=== PATIENT | male | born 1950 | race Caucasian/White ===

== ENCOUNTER 2016-09-10 00:15 | Emergency (ER) | payer MEDICARE, MEDICAID ==
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
== END 2016-09-10 02:45 ==
LOC: ER 00:15
DX: G89.29 Other chronic pain (principal); M54.9 Dorsalgia, unspecified; F11.20 Opioid dependence, uncomplicated; I10 Essential (primary) hypertension; J45.909 Unspecified asthma, uncomplicated; J44.9 Chronic obstructive pulmonary disease, unspecified; K21.9 Gastro-esophageal reflux disease without esophagitis
CPT/HCPCS: Z7502

== ENCOUNTER 2016-09-17 20:20 | Inpatient (IN) | payer MEDICARE, MEDICAID ==
--- NOTE | 2016-09-17 20:39 | ED Physician Chart ---
Chief Complaint/HPI - Patient Information Date Seen:: 09/17/16 Time Seen:: 20:34 Chief Complaint:: lower leg edema History of Present Illness:: pt of Dr Carreon, sent in from [place] for concern about lower leg edema. has hx of chf. no fever. no cp. no sob. no known hx of injury to leg. pt notes it is hit left leg that is red/swollen and very painfull and hot. Allergies:: Allergies Allergy/AdvReac Type Severity Reaction Status Date / Time No Known Allergies Allergy Verified 09/10/16 01:43 Historian:: Patient, EMS Review:: Transfer documents Reviewed Review of Systems - Review of Systems General/Constitutional: No fever, No chills, No weight loss, No weakness, No diaphoresis, No edema, No loss of appetite Skin: No skin lesions, No rash, No bruising Head: No headache, No light-headedness Eyes: No loss of vision, No pain, No diplopia ENT: No earache, No nasal drainage, No sore throat, No tinnitus Neck: No neck pain, No swelling, No thyromegaly, No stiffness, No mass noted Cardio Vascular: No chest pain, No palpitations, No PND, No orthopnea, No edema Pulmonary: No SOB, No cough, No sputum, No wheezing GI: No nausea, No vomiting, No diarrhea, No pain, No melena, No hematochezia, No constipation, No hematemesis G/U: No dysuria, No frequency, No hematuria Musculoskeletal: No bone or joint pain, No back pain, No muscle pain, Other ( leg pain/edema) Endocrine: No polyuria, No polydipsia Psychiatric: No prior psych history, No depression, No anxiety, No suicidal ideation Hematopoietic: No bruising, No lymphadenopathy Allergic/Immuno: No urticaria, No angioedema Neurological: No syncope, No focal symptoms, No weakness, No paresthesia, No headache, No seizure, No dizziness, No confusion, No vertigo Past Medical History - Past Medical History Past Medical History: HTN, CAD, CHF, PUD/GERD, Other (a fib. pt says he has aborderline DM hx) Social History: Alcohol (past etohic), Care Facility Psychiatricy History: Other (anxiety) Medication: Reviewed Family Medical History - Family Member Mother History Unknown: Yes Physical Exam - Physical Examination General/Constitutional: Awake, Well-developed, well-nourished, Alert, No distress, GCS 15, Non-toxic appearing, Ambulatory Head: Atraumatic Eyes: Lids, conjuctiva normal, PERRL, EOMI Skin: Nl inspection, No rash, No skin lesions, No ecchymosis, Well hydrated, No lymphadenopathy ENMT: External ears, nose nl, Nasal exam nl, Lips, teeth, gums nl Neck: Nontender, Full ROM w/o pain, No JVD, No nuchal rigidity, No bruit, No mass, No stridor Respiratory: Nl effort/Exclusion, Clear to Auscultation, No Wheeze/Rhonchi/Rales Cardio Vascular: RRR, No murmur, gallop, rubs, NL S1 S2 GI: No tenderness/rebounding/guarding, No organomegaly, No hernia, Normal BS's, Nondistended, No mass/bruits, No McBurney tenderness : No CVA tenderness Extremities: No tenderness or effusion, Full ROM, normal strength in all extremities, No edema, Normal digits & nails Other Extremities comments:: Left leg is swollen and red and hot/warm to touch. there are good 2+dp pulses in b feet. rt leg is not hot nor swollen. Neuro/Psych: Alert/oriented, DTR's symmetric, Normal sensory exam, Normal motor strength, Judgement/insight normal, Mood normal, Normal gait, No focal deficits Misc: normal gait, Normal back, No paraspinal tenderness Labs/Radiology/EKG Results - Lab Results Results: Laboratory Tests 09/17/16 09/17/16 09/17/16 21:01 21:01 21:01 WBC 7.1 RBC 3.37 L Hgb 11.6 L Hct 29.7 L MCV 88.2 MCH 34.5 H MCHC Differential 39.1 H RDW 16.8 Plt Count 183 MPV 8.4 Neutrophils % 72.5 Lymphocytes % 16.1 L Monocytes % 9.9 Eosinophils % 1.2 Basophils % 0.3 Sodium 133 L Potassium 4.1 Chloride 102 Carbon Dioxide 27.8 Anion Gap 7.3 BUN 21 Creatinine 0.8 Est GFR ( Amer) > 60.0 Est GFR (Non-Af Amer) > 60.0 BUN/Creatinine Ratio 26.3 Glucose 62 L Whole Bld Lactic Acid 0.85 Calcium 9.5 Total Bilirubin 0.6 AST 30 ALT 17 Alkaline Phosphatase 128 H Total Protein 8.1 Albumin 3.5 L Globulin 4.6 Albumin/Globulin Ratio 0.8 L - Radiology Results Results: us left leg negative for dvt - EKG Interpretations EKG Time:: 20:50 Rhythm: a fib Curtis: 57 Rate: 81 ED Septic Shock - . Is Septic Shock (SBP<90, OR Lactate>4 mmol\L) present?: No Reassessment (Disposition) - Reassessment Reassessment:: case dw Dr Carreon...will admit. pt received levaquin in ed for cellulitis l leg Reassessment Condition:: Unchanged, Improved - Diagnosis Diagnosis:: 1 cellulitis left leg 2 chronic a-fib - Patient Disposition Admitted to:: Telemetry Condition at Disposition:: Unchanged
[2016-09-17] MEDS ORDERED: Levofloxacin 500mg/100mL 500 MG/100 ML BAG IV ONE ×2 (21:00→21:15)
[2016-09-17 21:32] LABS: % BASOPHILS 0.3 % (0.0-2.0); % EOSINOPHILS 1.2 % (0.0-5.0); % LYMPHOCYTES 16.1 % (20.0-50.0); % MONOCYTES 9.9 % (2.0-10.0); % NEUTROPHILS 72.5 % (40.0-80.0); HEMATOCRIT 29.7 % (39.0-49.0); HEMOGLOBIN 11.6 gm/dL (12.6-17.4); MEAN CELL VOLUME 88.2 fl (80-99); MEAN CORPUSCULAR HEMOGLOBIN 34.5 pg (27.0-31.0); MEAN CORPUSCULAR HGB CONC 39.1 pg (28.0-36.0); MEAN PLATELET VOLUME 8.4 fl; NEUTROPHILE ABSOLUTE 5.2 Th/cmm (1.8-8.0); PLATELET COUNT 183 Th/cmm (150-400); RED BLOOD COUNT 3.37 Mil/cmm (3.80-5.80); RED CELL DISTRIBUTION WIDTH 16.8 % (11.5-20.0); WHITE BLOOD COUNT 7.1 Th/cmm (4.8-10.8)
[2016-09-17 21:43] LABS: ALB/GLOB RATIO 0.8 (1.0-1.8); ALKALINE PHOSPHATASE 128 U/L (34-104); ANION GAP 7.3 (7.0-16.0); BILIRUBIN,TOTAL 0.6 mg/dL (0.3-1.0); BUN - UREA NITROGEN 21 mg/dL (7-25); BUN/CREATININE RATIO 26.3; CALCIUM SERUM 9.5 mg/dL (8.6-10.3); CARBON DIOXIDE 27.8 mEq/L (21.0-31.0); CHLORIDE 102 mEq/L (98-107); CREATININE - SERUM 0.8 mg/dL (0.7-1.3); GLUCOSE 62 mg/dL (70-105); POTASSIUM SERUM 4.1 mEq/L (3.5-5.1); SGOT 30 U/L (13-39); SGPT/ALT 17 U/L (7-52); SODIUM SERUM 133 mEq/L (136-145)
[2016-09-18] MEDS ORDERED: Magnesium Hydroxide (MOM) 30 mL UDC PO PRN (00:37)
[2016-09-18] MEDS ORDERED: Fleet Enema 135 mL RC PRN (00:37)
[2016-09-18] MEDS ORDERED: Albuterol Nebulizer 2.5mg/3mL HHN PRN (00:37)
[2016-09-18] MEDS ORDERED: Pneumococcal Vaccine 0.5 mL Vial IM ONE (01:07)
[2016-09-18 07:04] LABS: ANION GAP 8.2 (7.0-16.0); BUN - UREA NITROGEN 20 mg/dL (7-25); BUN/CREATININE RATIO 33.3; CARBON DIOXIDE 27.8 mEq/L (21.0-31.0); CHLORIDE 101 mEq/L (98-107); CREATININE - SERUM 0.6 mg/dL (0.7-1.3); GLUCOSE 90 mg/dL (70-105); SODIUM SERUM 133 mEq/L (136-145)
[2016-09-18 07:06] LABS: % BASOPHILS 0.4 % (0.0-2.0); % EOSINOPHILS 0.8 % (0.0-5.0); % LYMPHOCYTES 19.7 % (20.0-50.0); % MONOCYTES 11.7 % (2.0-10.0); % NEUTROPHILS 67.4 % (40.0-80.0); HEMATOCRIT 28.5 % (39.0-49.0); HEMOGLOBIN 10.6 gm/dL (12.6-17.4); MEAN CELL VOLUME 90.7 fl (80-99); MEAN CORPUSCULAR HEMOGLOBIN 33.7 pg (27.0-31.0); MEAN CORPUSCULAR HGB CONC 37.2 pg (28.0-36.0); MEAN PLATELET VOLUME 8.5 fl; NEUTROPHILE ABSOLUTE 4.5 Th/cmm (1.8-8.0); PLATELET COUNT 166 Th/cmm (150-400); RED BLOOD COUNT 3.15 Mil/cmm (3.80-5.80); RED CELL DISTRIBUTION WIDTH 16.7 % (11.5-20.0); WHITE BLOOD COUNT 6.7 Th/cmm (4.8-10.8)
--- NOTE | 2016-09-18 07:26 | Admit Criteria Form ---
Admit Criteria Forms - Admit Criteria Diagnosis: CELLULITIS Clinical Indications for Admission to Inpatient Care (Place 'X' for any and all applicable criteria): Admission is indicated for ANY ONE of the following(1)(2)(3)(4)(5): [ ]I. Limb-threatening infection [ ]II. High-risk comorbid condition as indicated by ANY ONE of the following: [ ]a) Uncontrolled diabetes (eg, HbA1c greater than 10% (0.1)) [ ]b) Cirrhosis [ ]c) Neutropenia [ ]d) Asplenia [ ]e) Immunosuppression [ ]f) Symptomatic heart failure [ ]III. Failure of outpatient therapy as indicated by ALL of the following: [ ]a) Progression or no improvement after adequate trial (minimum of 48 hours, with longer period for stable lower extremity infection) [ ]b) Adequate antibiotic regimen as indicated by use of ANY ONE of the following: [ ]i) First-generation cephalosporin (e.g., cephalexin) [ ]ii) Antistaphylococcal penicillin (e.g., dicloxacillin) [ ]iii) Penicillin-allergic patient regimen (clindamycin, extended-spectrum fluoroquinolone, or doxycycline) [ ]iv) Resistant organism (eg, methicillin-resistant Staphylococcus aureus) regimen (6) [ ]c) Outpatient intravenous therapy regimen is not appropriate due to ANY ONE of the following. (7)(8)(9)(10): [ ]i) It was tried and was not successful (eg, progression of infection). [ ]ii) It is not available or cannot be arranged in a clinically appropriate time frame (e.g., the next day). [ ]iii) Clinical presentation (eg, acuity of infection, rapidity of progression, confirmed or suspected bacteremia) is judged to require ALL of the following: [ ]1) Immediate initiation of intravenous therapy ( eg, cannot wait for next day) [ ]2) Intensity of patient monitoring and observation (eg, vital sign measurement, checks for infection progression) that cannot be provided at other than inpatient level of care [ ]IV. Mental status changes [ ]V. Bacteremia [ ]. Hemodynamic instability [ ]VII. Suspected necrotizing soft tissue infection (e.g., gas in tissue)(11)( 12) [ ]VIII. Orbital infection (13)(14) [ ]IX. Associated surgical procedure (e.g., abscess drainage, debridement) not amenable to outpatient, emergency department, or observation care [ ]X. Cutaneous gangrene [ ]XI. High fever (temperature greater than 39.5 degrees C (103.1 degrees F) (oral)) not responsive to outpatient, emergency department, or observation care therapy [X ]XIII. Inpatient admission required rather than observation care (Also use Cellulitis: Observation Care as appropriate) because of ANY ONE of the following : [ ]a) Periorbital or perineal infection that is severe or worsening [ ]b) Severe pain requiring acute inpatient management [ ]c) IV fluid to replace significant ongoing (e.g., for over 24 hours) losses (greater than 3L/m2 per day) [ ]d) Compartment syndrome monitoring (17) [ ]e) Strict or protective (eg, laminar flow) isolation [ ]f) Urgent debridement or skin grafting [ ]g) Bone or joint debridement [ ]h) Immediate inpatient surgery [X ]i) Other condition, treatment or monitoring requiring inpatient admission Extended stay beyond goal length of stay may be needed for (1)(18): [ ]a) Necrotizing soft tissue infection or fasciitis [ ]b) Gram-negative infection [ ]c) Methicillin-resistant Staphylococcal aureus (MRSA) infection [ ]d) Peripheral venous insufficiency with cellulitis [ ]e) Extensive edema [ ]f) Sepsis or continued Hemodynamic instability [ ]g) Continued high fever or mental status change [ ]h) Bacteremia [ ]i) Active serious comorbid conditions ( eg, heart failure, renal insufficiency) The original [facility] [employer] content created by [facility] [employer] has been revised. The portions of the content which have been revised are identified through the use of italic text or in bold, and [facility] has neither reviewed nor approved the modified material. All other unmodified content is copyright [facility] Please see references footnoted in the original [facility] edition 2016 Admit Criteria Met?: Yes
[2016-09-18] MEDS: Pantoprazole 40 mg EC Tab PO SCH (08:34)
[2016-09-18] MEDS: Multivitamin Tab PO SCH (08:35)
[2016-09-18] MEDS ORDERED: Non-Formulary Item 1 EA (Non-Formulary Item [Non-Formulary Item] 1 EA) MC SCH (09:00)
[2016-09-18] MEDS ORDERED: Enoxaparin 80 mg/0.8 mL 0.8mL Syr SUBQ SCH (09:15)
--- NOTE | 2016-09-18 14:06 | Diagnostic Imaging Report ---
Portable chest x-ray HISTORY: Shortness of breath The overall heart size is difficult to assess with portable technique in a poor inspiration, but appears enlarged. No acute focal pulmonary processes. No hilar or mediastinal abnormalities. IMPRESSION: 1. No acute pulmonary processes 2. Cardiomegaly
--- NOTE | 2016-09-18 15:29 | Diagnostic Imaging Report ---
Left lower extremity Doppler venous ultrasound exam HISTORY: Pain/swelling Sonographic sector images were obtained through the deep venous systems of the left leg. Associated Doppler data was obtained. The exam demonstrates patency of the common femoral, superficial femoral, popliteal, and posterior tibial veins. Specifically, no thrombus is seen. There are normal compressibility and augmentation responses. IMPRESSION: Negative exam for deep vein thrombophlebitis.
--- NOTE | 2016-09-18 19:40 | Consultation ---
Consult Note - Consult Note Service Date: 09/18/16 Consult Note: PHYSICIAN Consultation Note: Date of Admission: 09/17/16 Purpose of Consultation: Chief Complaint: History of Present Illness: Patient NAZIA GONZÁLES, 66 Y M with multiple comorbidities brought to the ED for Left leg swelling and pain. On initial evaluation, his temperature was 98.3 degree F and WBC count was 7,100. ID consult was called and I had started vancomycin IV. was admitted to location Medical/Surgical Unit I with CELLULITIS. Allergies Allergy/AdvReac Type Severity Reaction Status Date / Time No Known Allergies Allergy Verified 09/10/16 01:43 Vital Signs Temp 98.5 F 09/18/16 16:00 Pulse 67 09/18/16 17:18 Resp 17 09/18/16 16:00 BP 123/55 09/18/16 17:18 Pulse Ox 97 09/18/16 16:00 Intake & Output 09/18/16 09/18/16 09/19/16 06:59 18:59 06:59 Intake Total 690 Output Total 360 Balance 330 Intake: Intake, IV Amount 250 Vancomycin HCl 1,250 mg 250 In Sodium Chloride 0.9% 250 ml @ 250 mls/hr IV Q12H [facility] Rx#:[id number] Oral 440 Output: Urine 360 Laboratory Results - last 24 hr 09/18/16 09/18/16 06:12 06:12 WBC 6.7 RBC 3.15 L Hgb 10.6 L Hct 28.5 L MCV 90.7 MCH 33.7 H MCHC Differential 37.2 H RDW 16.7 Plt Count 166 MPV 8.5 Neutrophils % 67.4 Lymphocytes % 19.7 L Monocytes % 11.7 H Eosinophils % 0.8 Basophils % 0.4 Sodium 133 L Potassium 4.0 Chloride 101 Carbon Dioxide 27.8 Anion Gap 8.2 BUN 20 Creatinine 0.6 L Est GFR ( Amer) > 60.0 Est GFR (Non-Af Amer) > 60.0 BUN/Creatinine Ratio 33.3 Glucose 90 Calcium 9.0 Home Medication Medication Instructions Recorded Type Acetaminophen [Tylenol Extra 1,000 mg PO Q4HR PRN 09/17/16 History Strength] Acetaminophen [Tylenol] 650 mg PO Q4HR PRN 09/17/16 History Acetaminophen [Tylenol] 650 mg PO Q4HR PRN 09/17/16 History Albuterol Sulfate [Proair 2 puff IH BID PRN 09/17/16 History Respiclick] Aspirin 325 mg PO DAILY 09/17/16 History Bisacodyl [Dulcolax 10 Mg Supp] 10 mg RC DAILY PRN 09/17/16 History Digoxin [Lanoxin] 0.25 mg PO DAILY 09/17/16 History Diphenhydramine HCl [Benadryl 25 mg PO HS PRN 09/17/16 History Allergy] Docusate Sodium [Colace] 100 mg PO DAILY 09/17/16 History Fleet Enema [Fleet Enema] 135 ml RC Q48HR PRN 09/17/16 History Furosemide [Lasix] 20 mg PO DAILY 09/17/16 History Lisinopril [Zestril] 20 mg PO DAILY 09/17/16 History Lorazepam [Ativan] 0.5 mg PO Q6HR PRN 09/17/16 History Magnesium Hydroxide [Milk of 30 ml PO HS PRN 09/17/16 History Magnesia] Metoprolol Tartrate [Lopressor] 100 mg PO BID 09/17/16 History Morphine IR [Morphine IR*] 15 mg PO Q12HR PRN 09/17/16 History Multivitamin [Multivitamins] 1 each PO DAILY 09/17/16 History Non-Formulary Item 1 ea MC DAILY 09/17/16 History Ondansetron HCl [Zofran*] 4 mg PO Q8HR PRN 09/17/16 History Pantoprazole [Protonix] 40 mg PO DAILY 09/17/16 History Rivaroxaban [Xarelto] 20 mg PO DAILY 09/17/16 History Spironolactone [Aldactone] 25 mg PO DAILY 09/17/16 History Current Medications Generic Name Dose Route Start Last Admin Trade Name Freq PRN Reason Stop Dose Admin Acetaminophen 1,000 mg 09/18/16 00:46 Tylenol Extra Strength PO 11/17/16 00:45 Q4H PRN Pain (Moderate) Acetaminophen 650 mg 09/18/16 00:37 09/18/16 05:27 Tylenol PO 11/17/16 00:36 650 mg Q4HR PRN Administration Pain (Mild) Albuterol Sulfate 2.5 mg 09/18/16 00:37 Albuterol 2.5mg/3ml Neb Ud HHN BID PRN Shortness of Breath or Wheeze Aspirin 325 mg 09/18/16 09:00 09/18/16 08:30 Aspirin PO 11/17/16 08:59 325 mg DAILY EVELYN Administration Bisacodyl 10 mg 09/18/16 00:37 Dulcolax 10 Mg Supp RC 11/17/16 00:36 DAILY PRN Constipation Digoxin 0.25 mg 09/18/16 09:00 09/18/16 09:02 Lanoxin PO 11/17/16 08:59 Not Given DAILY EVELYN Diphenhydramine HCl 25 mg 09/18/16 00:37 Benadryl PO 11/17/16 00:36 HS PRN Itching Docusate Sodium 100 mg 09/18/16 09:00 09/18/16 08:31 Colace PO 11/17/16 08:59 100 mg DAILY EVELYN Administration Furosemide 20 mg 09/18/16 09:00 09/18/16 08:31 Lasix PO 11/17/16 08:59 20 mg DAILY EVELYN Administration Vancomycin HCl 1,250 mg/ 250 mls @ 250 mls/hr 09/18/16 10:00 09/18/16 11:30 Sodium Chloride IV 11/17/16 09:59 Infused Q12H EVELYN Infusion Lisinopril 20 mg 09/18/16 09:00 09/18/16 08:31 Zestril PO 11/17/16 08:59 20 mg DAILY EVELYN Administration Lorazepam 0.5 mg 09/18/16 00:37 Ativan PO 11/17/16 00:36 Q6HR PRN Anxiety Protocol Magnesium Hydroxide 30 ml 09/18/16 00:37 Milk Of Magnesia PO 11/17/16 00:36 HS PRN Constipation Metoprolol Tartrate 100 mg 09/18/16 09:00 09/18/16 17:18 Lopressor PO 11/17/16 08:59 100 mg BID EVELYN Administration Miscellaneous 1 ea 09/18/16 09:00 Non-Formulary Item [Non-Formulary Item] 11/17/16 08:59 DAILY EVELYN Miscellaneous 1 ea 09/18/16 17:41 Vancomycin Iv Per Pharmacy 11/17/16 17:40 PRN PRN VANCOMYCIN DOSING Morphine Sulfate 15 mg 09/18/16 00:37 09/18/16 14:21 Morphine Ir PO 11/17/16 00:36 15 mg Q12HR PRN Administration Pain (Severe) Multivitamins/Vitamin C 1 tab 09/18/16 09:00 09/18/16 08:35 Theragran PO 11/17/16 08:59 1 tab DAILY EVELYN Administration Ondansetron HCl 4 mg 09/18/16 01:00 Zofran Odt PO 11/17/16 00:59 Q8H PRN Nausea / Vomiting Pantoprazole Sodium 40 mg 09/18/16 09:00 09/18/16 08:34 Protonix PO 11/17/16 08:59 40 mg DAILY EVELYN Administration Rivaroxaban 20 mg 09/18/16 09:00 09/18/16 09:00 Xarelto PO 11/17/16 08:59 20 mg DAILY EVELYN Administration Sodium Phosphate 135 ml 09/18/16 00:37 Fleet Enema RC 11/17/16 00:36 Q48HR PRN Constipation Spironolactone 25 mg 09/18/16 09:00 09/18/16 08:30 Aldactone PO 11/17/16 08:59 25 mg DAILY EVELYN Administration Review of Systems: Constitutional: patient denies any fever, or chills, Has no generalized weakness. HEENT: No earache, or ear discharge, no sore throat. RS: Denies cough of shortness of breath. CVS: There is no CP or palpitations. GI: Denies any N/V/D/C and abd pains. : Denies Dysuria, hematuria. MS: Complains of pain in the legs. 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 Skin: discoloration of legs. associated swelling of left leg. A 12 point ROS was reviewed with the pertinent positive and negatives noted in the HPI. Past Medical History Hx Diabetes No Hx HTN Yes Hx COPD Yes Hx Stroke No Hx Seizure No Hx Renal Disease No Hepatitis No Bleeding Problems No Depression No VRE No MRSA No Hx Dizziness No Anxiety No Hx Arthritis No Hx Asthma Yes Hx Blood Transfusion Reaction No Hx Cardiac Disease No Hx Eating Disorder No Hx Fainting/Syncope No Hx GI Problems/Ulcer Yes TB Diagnosis In Past 2 Years No Social History Smoking Status Former smoker Drug Use No Alcohol Use No Family Medical History Nonsignificant. Physical Exam: General: No Acute Distress HEENT: EOMI Bilaterally, PERRLA Bilaterally, Head is normocephalic, atraumatic on inspection. Cardio: +S1/S2 Auscultated, RRR, no murmurs/rubs/gallops noted Respiratory: Clear to Auscultate Bilaterally. no rhochi. Abdominal: Soft, Nondistended, Nontender to palpation x 4 quadrants Extremities: Swelling of the left leg with discoloration. he has prominent veins of the right leg. NCCE. Stasis changes in both legs Neurological: Alert and Oriented x3, Cranial Nerves II-XII intact bilaterally, Gait Steady, No Focal Deficits noted. Assessment/Plan: 1. Cellulitis of the Left leg. 2. PAD. 3. vericose vein. 4. HTN 5. COPD. Recommendations: Continue vanco IV and order arterial studies. Skin care. Thank you Dr Hoffmann for involving me in taking care of this patient. Bradford Moralez Devesh N., M.D. [id number]
--- NOTE | 2016-09-18 21:49 | History & Physical ---
HISTORY OF PRESENT ILLNESS: The patient came to the Emergency Room ____ bilateral lower leg edema and redness. The patient is known to have history of CHF and the patient was evaluated in the Emergency Room, found to have cellulitis and also DVT. PAST MEDICAL HISTORY: Hypertension, coronary artery disease, CHF, GERD, history of peptic ulcer disease. PHYSICAL EXAMINATION: GENERAL: Awake, alert, well-developed, nourished male, not in acute distress. VITAL SIGNS: As noted. HEAD: Normal. ENT: Normal. NECK: Supple. LUNGS: Bilateral rhonchi. CARDIOVASCULAR SYSTEM: S1, S2 heard. ABDOMEN: Soft. Bowel sounds are heard. CENTRAL NERVOUS SYSTEM: Grossly normal. LABORATORY DATA: White count was 7.1, hemoglobin 11.6 and the patient bilateral leg tenderness was noted. DIAGNOSES: Bilateral leg tenderness, cellulitis, chronic atrial fib, history of congestive heart failure, history of hypertension, history of coronary artery disease and history of chronic obstructive pulmonary disease, history of varicose veins, peripheral vascular disease. PLAN: The patient is being admitted, given IV antibiotics and I will have Dr. Antoine Felder see the patient and I will follow. JOB# [id number]
[2016-09-19] MEDS: Pantoprazole 40 mg EC Tab PO SCH (09:07)
[2016-09-19] MEDS: Multivitamin Tab PO SCH (09:07)
--- NOTE | 2016-09-19 13:00 | General Progress Note ---
Subjective - Review of Systems Service Date: 09/19/16 Subjective: awake , alert, c/o pain Objective - Results Result Diagrams: 09/18/16 06:12 09/18/16 06:12 Recent Labs: Laboratory Last Values WBC 6.7 Th/cmm (4.8-10.8) 09/18/16 06:12 RBC 3.15 Mil/cmm (3.80-5.80) L 09/18/16 06:12 Hgb 10.6 gm/dL (12.6-17.4) L 09/18/16 06:12 Hct 28.5 % (39.0-49.0) L 09/18/16 06:12 MCV 90.7 fl (80-99) 09/18/16 06:12 MCH 33.7 pg (27.0-31.0) H 09/18/16 06:12 MCHC Differential 37.2 pg (28.0-36.0) H 09/18/16 06:12 RDW 16.7 % (11.5-20.0) 09/18/16 06:12 Plt Count 166 Th/cmm (150-400) 09/18/16 06:12 MPV 8.5 fl 09/18/16 06:12 Neutrophils % 67.4 % (40.0-80.0) 09/18/16 06:12 Lymphocytes % 19.7 % (20.0-50.0) L 09/18/16 06:12 Monocytes % 11.7 % (2.0-10.0) H 09/18/16 06:12 Eosinophils % 0.8 % (0.0-5.0) 09/18/16 06:12 Basophils % 0.4 % (0.0-2.0) 09/18/16 06:12 D-Dimer 451 ng/mL (100-400) H 09/17/16 21:01 Sodium 133 mEq/L (136-145) L 09/18/16 06:12 Potassium 4.0 mEq/L (3.5-5.1) 09/18/16 06:12 Chloride 101 mEq/L (98-107) 09/18/16 06:12 Carbon Dioxide 27.8 mEq/L (21.0-31.0) 09/18/16 06:12 Anion Gap 8.2 (7.0-16.0) 09/18/16 06:12 BUN 20 mg/dL (7-25) 09/18/16 06:12 Creatinine 0.6 mg/dL (0.7-1.3) L 09/18/16 06:12 Est GFR ( Amer) > 60.0 ml/min (>90) 09/18/16 06:12 Est GFR (Non-Af Amer) > 60.0 ml/min 09/18/16 06:12 BUN/Creatinine Ratio 33.3 09/18/16 06:12 Glucose 90 mg/dL (70-105) 09/18/16 06:12 POC Glucose 149 MG/DL (70-105) H 09/17/16 22:30 Whole Bld Lactic Acid 0.85 mmol/L (0.60-2.00) 09/17/16 21:01 Calcium 9.0 mg/dL (8.6-10.3) 09/18/16 06:12 Total Bilirubin 0.6 mg/dL (0.3-1.0) 09/17/16 21:01 AST 30 U/L (13-39) 09/17/16 21:01 ALT 17 U/L (7-52) 09/17/16 21:01 Alkaline Phosphatase 128 U/L (34-104) H 09/17/16 21:01 B-Natriuretic Peptide 639.0 pg/mL (5.0-100.0) H 09/17/16 21:01 Total Protein 8.1 gm/dL (6.0-8.3) 09/17/16 21:01 Albumin 3.5 gm/dL (4.2-5.5) L 09/17/16 21:01 Globulin 4.6 gm/dL 09/17/16 21:01 Albumin/Globulin Ratio 0.8 (1.0-1.8) L 09/17/16 21:01 Vancomycin Trough 14.4 ug/mL (10-20) 09/19/16 09:30 - Physical Exam Vitals and I&O: Vital Signs Temp 99.0 F 09/19/16 04:00 Pulse 55 09/19/16 09:10 Resp 18 09/19/16 04:00 BP 114/53 09/19/16 09:10 Pulse Ox 98 09/19/16 04:00 Intake & Output 09/18/16 09/19/16 09/19/16 18:59 06:59 18:59 Intake Total 690 250 Output Total 360 Balance 330 250 Intake: Intake, IV Amount 250 250 Vancomycin HCl 1,250 mg 250 250 In Sodium Chloride 0.9% 250 ml @ 250 mls/hr IV Q12H [facility] Rx#:[id number] Oral 440 Output: Urine 360 Active Medications: Current Medications Acetaminophen (Tylenol Extra Strength) 1,000 mg PO Q4H PRN PRN Reason: Pain (Moderate) Stop: 11/17/16 00:45 Acetaminophen (Tylenol) 650 mg PO Q4HR PRN PRN Reason: Pain (Mild) Stop: 11/17/16 00:36 Last Admin: 09/18/16 20:46 Dose: 650 mg Albuterol Sulfate (Albuterol 2.5mg/3ml Neb Ud) 2.5 mg HHN BID PRN PRN Reason: Shortness of Breath or Wheeze Aspirin (Aspirin) 325 mg PO DAILY [facility] Stop: 11/17/16 08:59 Last Admin: 09/19/16 09:07 Dose: 325 mg Bisacodyl (Dulcolax 10 Mg Supp) 10 mg RC DAILY PRN PRN Reason: Constipation Stop: 11/17/16 00:36 Digoxin (Lanoxin) 0.25 mg PO DAILY [facility] Stop: 11/17/16 08:59 Last Admin: 09/19/16 09:08 Dose: Not Given Diphenhydramine HCl (Benadryl) 25 mg PO HS PRN PRN Reason: Itching Stop: 11/17/16 00:36 Docusate Sodium (Colace) 100 mg PO DAILY [facility] Stop: 11/17/16 08:59 Last Admin: 09/19/16 09:07 Dose: 100 mg Furosemide (Lasix) 20 mg PO DAILY [facility] Stop: 11/17/16 08:59 Last Admin: 09/19/16 09:07 Dose: 20 mg Vancomycin HCl 1,250 mg/ (Sodium Chloride) 250 mls @ 250 mls/hr IV Q12H [facility] Stop: 11/17/16 09:59 Last Admin: 09/19/16 10:06 Dose: 250 mls/hr Lisinopril (Zestril) 20 mg PO DAILY [facility] Stop: 11/17/16 08:59 Last Admin: 09/19/16 09:10 Dose: Not Given Lorazepam (Ativan) 0.5 mg PO Q6HR PRN; Protocol PRN Reason: Anxiety Stop: 11/17/16 00:36 Magnesium Hydroxide (Milk Of Magnesia) 30 ml PO HS PRN PRN Reason: Constipation Stop: 11/17/16 00:36 Metoprolol Tartrate (Lopressor) 100 mg PO BID [facility] Stop: 11/17/16 08:59 Last Admin: 09/19/16 09:10 Dose: Not Given Miscellaneous (Non-Formulary Item [Non-Formulary Item]) 1 ea DAILY [facility] Stop: 11/17/16 08:59 Miscellaneous (Vancomycin Iv Per Pharmacy) 1 [facility] PRN PRN PRN Reason: VANCOMYCIN DOSING Stop: 11/17/16 17:40 Morphine Sulfate (Morphine Ir) 15 mg PO Q12HR PRN PRN Reason: Pain (Severe) Stop: 11/17/16 00:36 Last Admin: 09/19/16 02:25 Dose: 15 mg Multivitamins/Vitamin C (Theragran) 1 tab PO DAILY [facility] Stop: 11/17/16 08:59 Last Admin: 09/19/16 09:07 Dose: 1 tab Ondansetron HCl (Zofran Odt) 4 mg PO Q8H PRN PRN Reason: Nausea / Vomiting Stop: 11/17/16 00:59 Pantoprazole Sodium (Protonix) 40 mg PO DAILY [facility] Stop: 11/17/16 08:59 Last Admin: 09/19/16 09:07 Dose: 40 mg Rivaroxaban (Xarelto) 20 mg PO DAILY [facility] Stop: 11/17/16 08:59 Last Admin: 09/19/16 09:19 Dose: 20 mg Sodium Phosphate (Fleet Enema) 135 ml RC Q48HR PRN PRN Reason: Constipation Stop: 11/17/16 00:36 Spironolactone (Aldactone) 25 mg PO DAILY [facility] Stop: 11/17/16 08:59 Last Admin: 09/19/16 09:06 Dose: 25 mg General: Alert HEENT: Atraumatic Neck: Supple Cardiovascular: Regular rate Lungs: Normal air movement Abdomen: Bowel sounds Neurological: Normal tone Assessment/Plan - Assessment Assessment: 1. cellulitis of left leg. 2. varicose veins. 3. PAD. 4. HTN. 5. COPD. - Plan Plan: ivabx surgical consult wound care cpm
--- NOTE | 2016-09-19 14:14 | Diagnostic Imaging Report ---
Bilateral lower extremity Doppler arterial ultrasound exam HISTORY: Pain, peripheral arterial disease Sonographic sector images were obtained through the arterial systems of both legs. Associated Doppler data was obtained. The exam of the right leg demonstrates biphasic waveforms within the common femoral, proximal midportion of the superficial femoral artery, anterior tibial, posterior tibial, and dorsalis pedis arteries. Triphasic waveforms are seen within the distal portion of the right superficial femoral artery and within the right popliteal artery. Elevated velocities noted within the common femoral and proximal portions of the superficial femoral artery. Increase in velocity also noted within the popliteal artery region with the mild decrease in velocity seen within the right posterior tibial artery. The right ankle-brachial index appears normal (1.2). The left leg demonstrates biphasic waveforms in the common femoral, distal superficial femoral, popliteal, anterior tibial, posterior tibial, and dorsalis pedis arteries. Triphasic waveforms are seen within the proximal midportion of the superficial femoral artery. Elevated velocities noted within the common femoral artery region. Increase in velocity noted within the popliteal artery with a decrease in velocity seen within the left posterior tibial artery. The ankle-brachial index appears normal (1.06). Sonographic sector images demonstrate bilateral mild to moderate diffuse atherosclerotic changes. IMPRESSION: 1. Evidence of diffuse mild to moderate bilateral atherosclerotic changes. If necessary, a CT angiographic study would provide additional detail.
--- NOTE | 2016-09-19 14:17 | Infectious Disease Prog Note ---
Infectious Disease Subjective - Review of Systems Service Date: 09/19/16 Subjective: There is no new change. There is no fever. Infectious Disease Objective - Results Result Diagrams: 09/18/16 06:12 09/18/16 06:12 Recent Labs: Laboratory Last Values WBC 6.7 Th/cmm (4.8-10.8) 09/18/16 06:12 RBC 3.15 Mil/cmm (3.80-5.80) L 09/18/16 06:12 Hgb 10.6 gm/dL (12.6-17.4) L 09/18/16 06:12 Hct 28.5 % (39.0-49.0) L 09/18/16 06:12 MCV 90.7 fl (80-99) 09/18/16 06:12 MCH 33.7 pg (27.0-31.0) H 09/18/16 06:12 MCHC Differential 37.2 pg (28.0-36.0) H 09/18/16 06:12 RDW 16.7 % (11.5-20.0) 09/18/16 06:12 Plt Count 166 Th/cmm (150-400) 09/18/16 06:12 MPV 8.5 fl 09/18/16 06:12 Neutrophils % 67.4 % (40.0-80.0) 09/18/16 06:12 Lymphocytes % 19.7 % (20.0-50.0) L 09/18/16 06:12 Monocytes % 11.7 % (2.0-10.0) H 09/18/16 06:12 Eosinophils % 0.8 % (0.0-5.0) 09/18/16 06:12 Basophils % 0.4 % (0.0-2.0) 09/18/16 06:12 D-Dimer 451 ng/mL (100-400) H 09/17/16 21:01 Sodium 133 mEq/L (136-145) L 09/18/16 06:12 Potassium 4.0 mEq/L (3.5-5.1) 09/18/16 06:12 Chloride 101 mEq/L (98-107) 09/18/16 06:12 Carbon Dioxide 27.8 mEq/L (21.0-31.0) 09/18/16 06:12 Anion Gap 8.2 (7.0-16.0) 09/18/16 06:12 BUN 20 mg/dL (7-25) 09/18/16 06:12 Creatinine 0.6 mg/dL (0.7-1.3) L 09/18/16 06:12 Est GFR ( Amer) > 60.0 ml/min (>90) 09/18/16 06:12 Est GFR (Non-Af Amer) > 60.0 ml/min 09/18/16 06:12 BUN/Creatinine Ratio 33.3 09/18/16 06:12 Glucose 90 mg/dL (70-105) 09/18/16 06:12 POC Glucose 149 MG/DL (70-105) H 09/17/16 22:30 Whole Bld Lactic Acid 0.85 mmol/L (0.60-2.00) 09/17/16 21:01 Calcium 9.0 mg/dL (8.6-10.3) 09/18/16 06:12 Total Bilirubin 0.6 mg/dL (0.3-1.0) 09/17/16 21:01 AST 30 U/L (13-39) 09/17/16 21:01 ALT 17 U/L (7-52) 09/17/16 21:01 Alkaline Phosphatase 128 U/L (34-104) H 09/17/16 21:01 B-Natriuretic Peptide 639.0 pg/mL (5.0-100.0) H 09/17/16 21:01 Total Protein 8.1 gm/dL (6.0-8.3) 09/17/16 21:01 Albumin 3.5 gm/dL (4.2-5.5) L 09/17/16 21:01 Globulin 4.6 gm/dL 09/17/16 21:01 Albumin/Globulin Ratio 0.8 (1.0-1.8) L 09/17/16 21:01 Vancomycin Trough 14.4 ug/mL (10-20) 09/19/16 09:30 - Physical Exam Vitals and I&O: Vital Signs Temp 98.4 F 09/19/16 08:00 Pulse 55 09/19/16 09:10 Resp 18 09/19/16 08:00 BP 114/53 09/19/16 09:10 Pulse Ox 97 09/19/16 08:00 Intake & Output 09/18/16 09/19/16 09/19/16 18:59 06:59 18:59 Intake Total 690 250 240 Output Total 360 250 Balance 330 250 -10 Intake: Intake, IV Amount 250 250 Vancomycin HCl 1,250 mg 250 250 In Sodium Chloride 0.9% 250 ml @ 250 mls/hr IV Q12H [facility] Rx#:[id number] Oral 440 240 Output: Urine 360 250 Active Medications: Current Medications Acetaminophen (Tylenol Extra Strength) 1,000 mg PO Q4H PRN PRN Reason: Pain (Moderate) Stop: 11/17/16 00:45 Acetaminophen (Tylenol) 650 mg PO Q4HR PRN PRN Reason: Pain (Mild) Stop: 11/17/16 00:36 Last Admin: 09/18/16 20:46 Dose: 650 mg Albuterol Sulfate (Albuterol 2.5mg/3ml Neb Ud) 2.5 mg HHN BID PRN PRN Reason: Shortness of Breath or Wheeze Aspirin (Aspirin) 325 mg PO DAILY [facility] Stop: 11/17/16 08:59 Last Admin: 09/19/16 09:07 Dose: 325 mg Bisacodyl (Dulcolax 10 Mg Supp) 10 mg RC DAILY PRN PRN Reason: Constipation Stop: 11/17/16 00:36 Digoxin (Lanoxin) 0.25 mg PO DAILY [facility] Stop: 11/17/16 08:59 Last Admin: 09/19/16 09:08 Dose: Not Given Diphenhydramine HCl (Benadryl) 25 mg PO HS PRN PRN Reason: Itching Stop: 11/17/16 00:36 Docusate Sodium (Colace) 100 mg PO DAILY [facility] Stop: 11/17/16 08:59 Last Admin: 09/19/16 09:07 Dose: 100 mg Furosemide (Lasix) 20 mg PO DAILY [facility] Stop: 11/17/16 08:59 Last Admin: 09/19/16 09:07 Dose: 20 mg Vancomycin HCl 1,250 mg/ (Sodium Chloride) 250 mls @ 250 mls/hr IV Q12H [facility] Stop: 11/17/16 09:59 Last Admin: 09/19/16 10:06 Dose: 250 mls/hr Lisinopril (Zestril) 20 mg PO DAILY [facility] Stop: 11/17/16 08:59 Last Admin: 09/19/16 09:10 Dose: Not Given Lorazepam (Ativan) 0.5 mg PO Q6HR PRN; Protocol PRN Reason: Anxiety Stop: 11/17/16 00:36 Magnesium Hydroxide (Milk Of Magnesia) 30 ml PO HS PRN PRN Reason: Constipation Stop: 11/17/16 00:36 Metoprolol Tartrate (Lopressor) 100 mg PO BID [facility] Stop: 11/17/16 08:59 Last Admin: 09/19/16 09:10 Dose: Not Given Miscellaneous (Non-Formulary Item [Non-Formulary Item]) 1 ea [facility] DAILY [facility] Stop: 11/17/16 08:59 Miscellaneous (Vancomycin Iv Per Pharmacy) 1 [facility] PRN PRN PRN Reason: VANCOMYCIN DOSING Stop: 11/17/16 17:40 Morphine Sulfate (Morphine Ir) 15 mg PO Q12HR PRN PRN Reason: Pain (Severe) Stop: 11/17/16 00:36 Last Admin: 09/19/16 13:49 Dose: 15 mg Multivitamins/Vitamin C (Theragran) 1 tab PO DAILY [facility] Stop: 11/17/16 08:59 Last Admin: 09/19/16 09:07 Dose: 1 tab Ondansetron HCl (Zofran Odt) 4 mg PO Q8H PRN PRN Reason: Nausea / Vomiting Stop: 11/17/16 00:59 Pantoprazole Sodium (Protonix) 40 mg PO DAILY [facility] Stop: 11/17/16 08:59 Last Admin: 09/19/16 09:07 Dose: 40 mg Rivaroxaban (Xarelto) 20 mg PO DAILY [facility] Stop: 11/17/16 08:59 Last Admin: 09/19/16 09:19 Dose: 20 mg Sodium Phosphate (Fleet Enema) 135 ml RC Q48HR PRN PRN Reason: Constipation Stop: 11/17/16 00:36 Spironolactone (Aldactone) 25 mg PO DAILY [facility] Stop: 11/17/16 08:59 Last Admin: 09/19/16 09:06 Dose: 25 mg General: no acute distress, well developed, well nourished HEENT: atraumatic, normocephalic, PERRLA, EOMI Neck: supple, no thyromegaly, no lymphadenopathy Cardiovascular: S1S2, regular Lungs: clear to auscultation bilaterally, clear to percussion Abdomen: soft, no tender, no distended Extremities: other (left leg swelling with discoloration. right leg with discoloration and prominent veints.), no cyanosis, no clubbing, no edema Neurological: awake, alert, oriented Skin: intact Infectious Disease Assmt/Plan - Assessment Assessment: 1. cellulitis of left leg. 2. varicose veins. 3. PAD. 4. HTN. 5. COPD. - Plan Plan: Continue canco IV and consult Dr Keita.
[2016-09-19] MEDS: Acetaminophen 500 MG TAB PO PRN (21:09)
--- NOTE | 2016-09-20 04:51 | Infectious Disease Prog Note ---
Infectious Disease Subjective - Review of Systems Service Date: 09/20/16 Subjective: There is no new change. There is no fever. Infectious Disease Objective - Results Result Diagrams: 09/18/16 06:12 09/18/16 06:12 Recent Labs: Laboratory Last Values WBC 6.7 Th/cmm (4.8-10.8) 09/18/16 06:12 RBC 3.15 Mil/cmm (3.80-5.80) L 09/18/16 06:12 Hgb 10.6 gm/dL (12.6-17.4) L 09/18/16 06:12 Hct 28.5 % (39.0-49.0) L 09/18/16 06:12 MCV 90.7 fl (80-99) 09/18/16 06:12 MCH 33.7 pg (27.0-31.0) H 09/18/16 06:12 MCHC Differential 37.2 pg (28.0-36.0) H 09/18/16 06:12 RDW 16.7 % (11.5-20.0) 09/18/16 06:12 Plt Count 166 Th/cmm (150-400) 09/18/16 06:12 MPV 8.5 fl 09/18/16 06:12 Neutrophils % 67.4 % (40.0-80.0) 09/18/16 06:12 Lymphocytes % 19.7 % (20.0-50.0) L 09/18/16 06:12 Monocytes % 11.7 % (2.0-10.0) H 09/18/16 06:12 Eosinophils % 0.8 % (0.0-5.0) 09/18/16 06:12 Basophils % 0.4 % (0.0-2.0) 09/18/16 06:12 D-Dimer 451 ng/mL (100-400) H 09/17/16 21:01 Sodium 133 mEq/L (136-145) L 09/18/16 06:12 Potassium 4.0 mEq/L (3.5-5.1) 09/18/16 06:12 Chloride 101 mEq/L (98-107) 09/18/16 06:12 Carbon Dioxide 27.8 mEq/L (21.0-31.0) 09/18/16 06:12 Anion Gap 8.2 (7.0-16.0) 09/18/16 06:12 BUN 20 mg/dL (7-25) 09/18/16 06:12 Creatinine 0.6 mg/dL (0.7-1.3) L 09/18/16 06:12 Est GFR ( Amer) > 60.0 ml/min (>90) 09/18/16 06:12 Est GFR (Non-Af Amer) > 60.0 ml/min 09/18/16 06:12 BUN/Creatinine Ratio 33.3 09/18/16 06:12 Glucose 90 mg/dL (70-105) 09/18/16 06:12 POC Glucose 149 MG/DL (70-105) H 09/17/16 22:30 Whole Bld Lactic Acid 0.85 mmol/L (0.60-2.00) 09/17/16 21:01 Calcium 9.0 mg/dL (8.6-10.3) 09/18/16 06:12 Total Bilirubin 0.6 mg/dL (0.3-1.0) 09/17/16 21:01 AST 30 U/L (13-39) 09/17/16 21:01 ALT 17 U/L (7-52) 09/17/16 21:01 Alkaline Phosphatase 128 U/L (34-104) H 09/17/16 21:01 B-Natriuretic Peptide 639.0 pg/mL (5.0-100.0) H 09/17/16 21:01 Total Protein 8.1 gm/dL (6.0-8.3) 09/17/16 21:01 Albumin 3.5 gm/dL (4.2-5.5) L 09/17/16 21:01 Globulin 4.6 gm/dL 09/17/16 21:01 Albumin/Globulin Ratio 0.8 (1.0-1.8) L 09/17/16 21:01 Vancomycin Trough 14.4 ug/mL (10-20) 09/19/16 09:30 - Physical Exam Vitals and I&O: Vital Signs Temp 98.3 F 09/20/16 04:00 Pulse 92 09/20/16 04:00 Resp 19 09/20/16 04:00 BP 124/65 09/20/16 04:00 Pulse Ox 98 09/20/16 04:00 Intake & Output 09/19/16 09/19/16 09/20/16 06:59 18:59 06:59 Intake Total 250 850 Output Total 610 Balance 250 240 Intake: Intake, IV Amount 250 250 Vancomycin HCl 1,250 mg 250 250 In Sodium Chloride 0.9% 250 ml @ 250 mls/hr IV Q12H [facility] Rx#:[id number] Oral 600 Output: Urine 610 Active Medications: Current Medications Acetaminophen (Tylenol Extra Strength) 1,000 mg PO Q4H PRN PRN Reason: Pain (Moderate) Stop: 11/17/16 00:45 Last Admin: 09/19/16 21:09 Dose: 1,000 mg Acetaminophen (Tylenol) 650 mg PO Q4HR PRN PRN Reason: Pain (Mild) Stop: 11/17/16 00:36 Last Admin: 09/18/16 20:46 Dose: 650 mg Albuterol Sulfate (Albuterol 2.5mg/3ml Neb Ud) 2.5 mg HHN BID PRN PRN Reason: Shortness of Breath or Wheeze Aspirin (Aspirin) 325 mg PO DAILY [facility] Stop: 11/17/16 08:59 Last Admin: 09/19/16 09:07 Dose: 325 mg Bisacodyl (Dulcolax 10 Mg Supp) 10 mg RC DAILY PRN PRN Reason: Constipation Stop: 11/17/16 00:36 Digoxin (Lanoxin) 0.25 mg PO DAILY [facility] Stop: 11/17/16 08:59 Last Admin: 09/19/16 09:08 Dose: Not Given Diphenhydramine HCl (Benadryl) 25 mg PO HS PRN PRN Reason: Itching Stop: 11/17/16 00:36 Docusate Sodium (Colace) 100 mg PO DAILY [facility] Stop: 11/17/16 08:59 Last Admin: 09/19/16 09:07 Dose: 100 mg Furosemide (Lasix) 20 mg PO DAILY [facility] Stop: 11/17/16 08:59 Last Admin: 09/19/16 09:07 Dose: 20 mg Vancomycin HCl 1,250 mg/ (Sodium Chloride) 250 mls @ 250 mls/hr IV Q12H [facility] Stop: 11/17/16 09:59 Last Admin: 09/19/16 21:14 Dose: 250 mls/hr Lisinopril (Zestril) 20 mg PO DAILY [facility] Stop: 11/17/16 08:59 Last Admin: 09/19/16 09:10 Dose: Not Given Lorazepam (Ativan) 0.5 mg PO Q6HR PRN; Protocol PRN Reason: Anxiety Stop: 11/17/16 00:36 Last Admin: 09/19/16 21:10 Dose: 0.5 mg Magnesium Hydroxide (Milk Of Magnesia) 30 ml PO HS PRN PRN Reason: Constipation Stop: 11/17/16 00:36 Metoprolol Tartrate (Lopressor) 100 mg PO BID [facility] Stop: 11/17/16 08:59 Last Admin: 09/19/16 17:49 Dose: Not Given Miscellaneous (Non-Formulary Item [Non-Formulary Item]) 1 ea DAILY [facility] Stop: 11/17/16 08:59 Miscellaneous (Vancomycin Iv Per Pharmacy) 1 [facility] PRN PRN PRN Reason: VANCOMYCIN DOSING Stop: 11/17/16 17:40 Morphine Sulfate (Morphine Ir) 15 mg PO Q12HR PRN PRN Reason: Pain (Severe) Stop: 11/17/16 00:36 Last Admin: 09/20/16 01:58 Dose: 15 mg Multivitamins/Vitamin C (Theragran) 1 tab PO DAILY [facility] Stop: 11/17/16 08:59 Last Admin: 09/19/16 09:07 Dose: 1 tab Ondansetron HCl (Zofran Odt) 4 mg PO Q8H PRN PRN Reason: Nausea / Vomiting Stop: 11/17/16 00:59 Pantoprazole Sodium (Protonix) 40 mg PO DAILY [facility] Stop: 11/17/16 08:59 Last Admin: 09/19/16 09:07 Dose: 40 mg Rivaroxaban (Xarelto) 20 mg PO DAILY [facility] Stop: 11/17/16 08:59 Last Admin: 09/19/16 09:19 Dose: 20 mg Sodium Phosphate (Fleet Enema) 135 ml RC Q48HR PRN PRN Reason: Constipation Stop: 11/17/16 00:36 Spironolactone (Aldactone) 25 mg PO DAILY [facility] Stop: 11/17/16 08:59 Last Admin: 09/19/16 09:06 Dose: 25 mg General: no acute distress, well developed, well nourished HEENT: atraumatic, normocephalic, PERRLA, EOMI, moist mucous membrane Neck: supple Cardiovascular: S1S2, regular Lungs: clear to auscultation bilaterally, clear to percussion Abdomen: soft, no tender, no distended Extremities: other (swelling of the left leg is improving.), no cyanosis, no clubbing, no edema Neurological: awake, alert, oriented, CN 2-12 intact Skin: intact Infectious Disease Assmt/Plan - Assessment Assessment: 1. cellulitis of left leg. 2. varicose veins. 3. PAD. 4. HTN. 5. COPD. - Plan Plan: Continue Vanco IV and consult Dr Keita.
[2016-09-20] MEDS: Pantoprazole 40 mg EC Tab PO SCH (09:07)
[2016-09-20] MEDS: Multivitamin Tab PO SCH (09:07)
[2016-09-20] MEDS ORDERED: HYDROmorphone 2 mg/mL 1mL Vial IVP PRN (11:15)
[2016-09-20] MEDS: HYDROmorphone 1 mg/mL 1mL Syr IVP PRN ×3 (12:41→23:02)
[2016-09-21] MEDS: Pantoprazole 40 mg EC Tab PO SCH (09:03)
[2016-09-21] MEDS: Multivitamin Tab PO SCH (09:05)
[2016-09-21] MEDS: HYDROmorphone 1 mg/mL 1mL Syr IVP PRN ×2 (11:09→20:48)
--- NOTE | 2016-09-21 18:23 | General Progress Note ---
Subjective - Review of Systems Service Date: 09/21/16 Subjective: awake , alert, c/o pain Objective - Results Result Diagrams: 09/18/16 06:12 09/18/16 06:12 Recent Labs: Laboratory Last Values WBC 6.7 Th/cmm (4.8-10.8) 09/18/16 06:12 RBC 3.15 Mil/cmm (3.80-5.80) L 09/18/16 06:12 Hgb 10.6 gm/dL (12.6-17.4) L 09/18/16 06:12 Hct 28.5 % (39.0-49.0) L 09/18/16 06:12 MCV 90.7 fl (80-99) 09/18/16 06:12 MCH 33.7 pg (27.0-31.0) H 09/18/16 06:12 MCHC Differential 37.2 pg (28.0-36.0) H 09/18/16 06:12 RDW 16.7 % (11.5-20.0) 09/18/16 06:12 Plt Count 166 Th/cmm (150-400) 09/18/16 06:12 MPV 8.5 fl 09/18/16 06:12 Neutrophils % 67.4 % (40.0-80.0) 09/18/16 06:12 Lymphocytes % 19.7 % (20.0-50.0) L 09/18/16 06:12 Monocytes % 11.7 % (2.0-10.0) H 09/18/16 06:12 Eosinophils % 0.8 % (0.0-5.0) 09/18/16 06:12 Basophils % 0.4 % (0.0-2.0) 09/18/16 06:12 D-Dimer 451 ng/mL (100-400) H 09/17/16 21:01 Sodium 133 mEq/L (136-145) L 09/18/16 06:12 Potassium 4.0 mEq/L (3.5-5.1) 09/18/16 06:12 Chloride 101 mEq/L (98-107) 09/18/16 06:12 Carbon Dioxide 27.8 mEq/L (21.0-31.0) 09/18/16 06:12 Anion Gap 8.2 (7.0-16.0) 09/18/16 06:12 BUN 20 mg/dL (7-25) 09/18/16 06:12 Creatinine 0.6 mg/dL (0.7-1.3) L 09/18/16 06:12 Est GFR ( Amer) > 60.0 ml/min (>90) 09/18/16 06:12 Est GFR (Non-Af Amer) > 60.0 ml/min 09/18/16 06:12 BUN/Creatinine Ratio 33.3 09/18/16 06:12 Glucose 90 mg/dL (70-105) 09/18/16 06:12 POC Glucose 149 MG/DL (70-105) H 09/17/16 22:30 Whole Bld Lactic Acid 0.85 mmol/L (0.60-2.00) 09/17/16 21:01 Calcium 9.0 mg/dL (8.6-10.3) 09/18/16 06:12 Total Bilirubin 0.6 mg/dL (0.3-1.0) 09/17/16 21:01 AST 30 U/L (13-39) 09/17/16 21:01 ALT 17 U/L (7-52) 09/17/16 21:01 Alkaline Phosphatase 128 U/L (34-104) H 09/17/16 21:01 B-Natriuretic Peptide 639.0 pg/mL (5.0-100.0) H 09/17/16 21:01 Total Protein 8.1 gm/dL (6.0-8.3) 09/17/16 21:01 Albumin 3.5 gm/dL (4.2-5.5) L 09/17/16 21:01 Globulin 4.6 gm/dL 09/17/16 21:01 Albumin/Globulin Ratio 0.8 (1.0-1.8) L 09/17/16 21:01 Vancomycin Trough 14.4 ug/mL (10-20) 09/19/16 09:30 - Physical Exam Vitals and I&O: Vital Signs Temp 98.2 F 09/21/16 15:51 Pulse 75 09/21/16 18:18 Resp 20 09/21/16 15:51 BP 99/50 09/21/16 18:18 Pulse Ox 98 09/21/16 15:51 Intake & Output 09/20/16 09/21/16 09/21/16 18:59 06:59 18:59 Intake Total 1250 1170 500 Output Total 1000 Balance 1250 170 500 Intake: Intake, IV Amount 250 250 Vancomycin HCl 1,250 mg 250 250 In Sodium Chloride 0.9% 250 ml @ 250 mls/hr IV Q12H [facility] Rx#:[id number] Oral 1000 920 500 Output: Urine 1000 Stool 0 Other: # Voids 3 3 # Bowel Movements 1 0 Active Medications: Current Medications Acetaminophen (Tylenol Extra Strength) 1,000 mg PO Q4H PRN PRN Reason: Pain (Moderate) Stop: 11/17/16 00:45 Last Admin: 09/19/16 21:09 Dose: 1,000 mg Acetaminophen (Tylenol) 650 mg PO Q4HR PRN PRN Reason: Pain (Mild) Stop: 11/17/16 00:36 Last Admin: 09/18/16 20:46 Dose: 650 mg Albuterol Sulfate (Albuterol 2.5mg/3ml Neb Ud) 2.5 mg HHN BID PRN PRN Reason: Shortness of Breath or Wheeze Aspirin (Aspirin) 325 mg PO DAILY [facility] Stop: 11/17/16 08:59 Last Admin: 09/21/16 09:03 Dose: 325 mg Bisacodyl (Dulcolax 10 Mg Supp) 10 mg RC DAILY PRN PRN Reason: Constipation Stop: 11/17/16 00:36 Digoxin (Lanoxin) 0.25 mg PO DAILY [facility] Stop: 11/17/16 08:59 Last Admin: 09/21/16 09:04 Dose: 0.25 mg Diphenhydramine HCl (Benadryl) 25 mg PO HS PRN PRN Reason: Itching Stop: 11/17/16 00:36 Docusate Sodium (Colace) 100 mg PO DAILY [facility] Stop: 11/17/16 08:59 Last Admin: 09/21/16 09:05 Dose: 100 mg Furosemide (Lasix) 20 mg PO DAILY [facility] Stop: 11/17/16 08:59 Last Admin: 09/21/16 09:04 Dose: 20 mg Hydromorphone HCl (Dilaudid) 1 mg IVP Q4HR PRN PRN Reason: Pain (Moderate) Stop: 11/19/16 11:14 Last Admin: 09/21/16 11:09 Dose: 1 mg Hydromorphone HCl (Dilaudid) 2 mg IVP Q4HR PRN PRN Reason: Severe Pain Stop: 11/19/16 11:14 Vancomycin HCl 1,250 mg/ (Sodium Chloride) 250 mls @ 250 mls/hr IV Q12H [facility] Stop: 11/17/16 09:59 Last Admin: 09/21/16 11:10 Dose: 250 mls/hr Lisinopril (Zestril) 20 mg PO DAILY [facility] Stop: 11/17/16 08:59 Last Admin: 09/21/16 09:05 Dose: 20 mg Lorazepam (Ativan) 0.5 mg PO Q6HR PRN; Protocol PRN Reason: Anxiety Stop: 11/17/16 00:36 Last Admin: 09/20/16 20:59 Dose: 0.5 mg Magnesium Hydroxide (Milk Of Magnesia) 30 ml PO HS PRN PRN Reason: Constipation Stop: 11/17/16 00:36 Metoprolol Tartrate (Lopressor) 100 mg PO BID [facility] Stop: 11/17/16 08:59 Last Admin: 09/21/16 18:18 Dose: Not Given Miscellaneous (Vancomycin Iv Per Pharmacy) 1 ea [facility] PRN PRN PRN Reason: VANCOMYCIN DOSING Stop: 11/17/16 17:40 Morphine Sulfate (Morphine Ir) 15 mg PO Q12HR PRN PRN Reason: Pain (Severe) Stop: 11/17/16 00:36 Last Admin: 09/20/16 01:58 Dose: 15 mg Multivitamins/Vitamin C (Theragran) 1 tab PO DAILY [facility] Stop: 11/17/16 08:59 Last Admin: 09/21/16 09:05 Dose: 1 tab Ondansetron HCl (Zofran Odt) 4 mg PO Q8H PRN PRN Reason: Nausea / Vomiting Stop: 11/17/16 00:59 Ondansetron HCl (Zofran) 4 mg IV Q6HR PRN PRN Reason: Nausea / Vomiting Stop: 11/19/16 11:16 Pantoprazole Sodium (Protonix) 40 mg PO DAILY [facility] Stop: 11/17/16 08:59 Last Admin: 09/21/16 09:03 Dose: 40 mg Rivaroxaban (Xarelto) 20 mg PO DAILY [facility] Stop: 11/17/16 08:59 Last Admin: 09/21/16 14:45 Dose: 20 mg Sodium Phosphate (Fleet Enema) 135 ml RC Q48HR PRN PRN Reason: Constipation Stop: 11/17/16 00:36 Spironolactone (Aldactone) 25 mg PO DAILY [facility] Stop: 11/17/16 08:59 Last Admin: 09/21/16 09:03 Dose: 25 mg Assessment/Plan - Assessment Assessment: 1. cellulitis of left leg. 2. varicose veins. 3. PAD. 4. HTN. 5. COPD. - Plan Plan: ivabx surgical consult wound care cpm
[2016-09-22] MEDS: Acetaminophen 500 MG TAB PO PRN (01:29)
--- NOTE | 2016-09-22 09:02 | General Progress Note ---
Subjective - Review of Systems Subjective: awake , alert, c/o pain Objective - Results Result Diagrams: 09/18/16 06:12 09/18/16 06:12 Recent Labs: Laboratory Last Values WBC 6.7 Th/cmm (4.8-10.8) 09/18/16 06:12 RBC 3.15 Mil/cmm (3.80-5.80) L 09/18/16 06:12 Hgb 10.6 gm/dL (12.6-17.4) L 09/18/16 06:12 Hct 28.5 % (39.0-49.0) L 09/18/16 06:12 MCV 90.7 fl (80-99) 09/18/16 06:12 MCH 33.7 pg (27.0-31.0) H 09/18/16 06:12 MCHC Differential 37.2 pg (28.0-36.0) H 09/18/16 06:12 RDW 16.7 % (11.5-20.0) 09/18/16 06:12 Plt Count 166 Th/cmm (150-400) 09/18/16 06:12 MPV 8.5 fl 09/18/16 06:12 Neutrophils % 67.4 % (40.0-80.0) 09/18/16 06:12 Lymphocytes % 19.7 % (20.0-50.0) L 09/18/16 06:12 Monocytes % 11.7 % (2.0-10.0) H 09/18/16 06:12 Eosinophils % 0.8 % (0.0-5.0) 09/18/16 06:12 Basophils % 0.4 % (0.0-2.0) 09/18/16 06:12 D-Dimer 451 ng/mL (100-400) H 09/17/16 21:01 Sodium 133 mEq/L (136-145) L 09/18/16 06:12 Potassium 4.0 mEq/L (3.5-5.1) 09/18/16 06:12 Chloride 101 mEq/L (98-107) 09/18/16 06:12 Carbon Dioxide 27.8 mEq/L (21.0-31.0) 09/18/16 06:12 Anion Gap 8.2 (7.0-16.0) 09/18/16 06:12 BUN 20 mg/dL (7-25) 09/18/16 06:12 Creatinine 0.6 mg/dL (0.7-1.3) L 09/18/16 06:12 Est GFR ( Amer) > 60.0 ml/min (>90) 09/18/16 06:12 Est GFR (Non-Af Amer) > 60.0 ml/min 09/18/16 06:12 BUN/Creatinine Ratio 33.3 09/18/16 06:12 Glucose 90 mg/dL (70-105) 09/18/16 06:12 POC Glucose 149 MG/DL (70-105) H 09/17/16 22:30 Whole Bld Lactic Acid 0.85 mmol/L (0.60-2.00) 09/17/16 21:01 Calcium 9.0 mg/dL (8.6-10.3) 09/18/16 06:12 Total Bilirubin 0.6 mg/dL (0.3-1.0) 09/17/16 21:01 AST 30 U/L (13-39) 09/17/16 21:01 ALT 17 U/L (7-52) 09/17/16 21:01 Alkaline Phosphatase 128 U/L (34-104) H 09/17/16 21:01 B-Natriuretic Peptide 639.0 pg/mL (5.0-100.0) H 09/17/16 21:01 Total Protein 8.1 gm/dL (6.0-8.3) 09/17/16 21:01 Albumin 3.5 gm/dL (4.2-5.5) L 09/17/16 21:01 Globulin 4.6 gm/dL 09/17/16 21:01 Albumin/Globulin Ratio 0.8 (1.0-1.8) L 09/17/16 21:01 Vancomycin Trough 14.4 ug/mL (10-20) 09/19/16 09:30 - Physical Exam Vitals and I&O: Vital Signs Temp 98.6 F 09/22/16 04:00 Pulse 63 09/22/16 04:00 Resp 19 09/22/16 04:00 BP 102/56 09/22/16 04:00 Pulse Ox 97 09/22/16 04:00 Intake & Output 09/21/16 09/22/16 09/22/16 18:59 06:59 18:59 Intake Total 750 920 Output Total 1000 Balance 750 -80 Intake: Intake, IV Amount 250 Vancomycin HCl 1,250 mg 250 In Sodium Chloride 0.9% 250 ml @ 250 mls/hr IV Q12H [facility] Rx#:[id number] Oral 500 920 Output: Urine 1000 Stool 0 Other: # Voids 3 # Bowel Movements 0 Active Medications: Current Medications Acetaminophen (Tylenol Extra Strength) 1,000 mg PO Q4H PRN PRN Reason: Pain (Moderate) Stop: 11/17/16 00:45 Last Admin: 09/22/16 01:29 Dose: 1,000 mg Acetaminophen (Tylenol) 650 mg PO Q4HR PRN PRN Reason: Pain (Mild) Stop: 11/17/16 00:36 Last Admin: 09/18/16 20:46 Dose: 650 mg Albuterol Sulfate (Albuterol 2.5mg/3ml Neb Ud) 2.5 mg HHN BID PRN PRN Reason: Shortness of Breath or Wheeze Aspirin (Aspirin) 325 mg PO DAILY [facility] Stop: 11/17/16 08:59 Last Admin: 09/21/16 09:03 Dose: 325 mg Bisacodyl (Dulcolax 10 Mg Supp) 10 mg RC DAILY PRN PRN Reason: Constipation Stop: 11/17/16 00:36 Digoxin (Lanoxin) 0.25 mg PO DAILY [facility] Stop: 11/17/16 08:59 Last Admin: 09/21/16 09:04 Dose: 0.25 mg Diphenhydramine HCl (Benadryl) 25 mg PO HS PRN PRN Reason: Itching Stop: 11/17/16 00:36 Docusate Sodium (Colace) 100 mg PO DAILY [facility] Stop: 11/17/16 08:59 Last Admin: 09/21/16 09:05 Dose: 100 mg Furosemide (Lasix) 20 mg PO DAILY [facility] Stop: 11/17/16 08:59 Last Admin: 09/21/16 09:04 Dose: 20 mg Hydromorphone HCl (Dilaudid) 1 mg IVP Q4HR PRN PRN Reason: Pain (Moderate) Stop: 11/19/16 11:14 Last Admin: 09/21/16 20:48 Dose: 1 mg Hydromorphone HCl (Dilaudid) 2 mg IVP Q4HR PRN PRN Reason: Severe Pain Stop: 11/19/16 11:14 Vancomycin HCl 1,250 mg/ (Sodium Chloride) 250 mls @ 250 mls/hr IV Q12H [facility] Stop: 11/17/16 09:59 Last Admin: 09/21/16 21:48 Dose: 250 mls/hr Lisinopril (Zestril) 20 mg PO DAILY [facility] Stop: 11/17/16 08:59 Last Admin: 09/21/16 09:05 Dose: 20 mg Lorazepam (Ativan) 0.5 mg PO Q6HR PRN; Protocol PRN Reason: Anxiety Stop: 11/17/16 00:36 Last Admin: 09/22/16 01:29 Dose: 0.5 mg Magnesium Hydroxide (Milk Of Magnesia) 30 ml PO HS PRN PRN Reason: Constipation Stop: 11/17/16 00:36 Metoprolol Tartrate (Lopressor) 100 mg PO BID [facility] Stop: 11/17/16 08:59 Last Admin: 09/21/16 18:18 Dose: Not Given Miscellaneous (Vancomycin Iv Per Pharmacy) 1 ea [facility] PRN PRN PRN Reason: VANCOMYCIN DOSING Stop: 11/17/16 17:40 Morphine Sulfate (Morphine Ir) 15 mg PO Q12HR PRN PRN Reason: Pain (Severe) Stop: 11/17/16 00:36 Last Admin: 09/20/16 01:58 Dose: 15 mg Multivitamins/Vitamin C (Theragran) 1 tab PO DAILY [facility] Stop: 11/17/16 08:59 Last Admin: 09/21/16 09:05 Dose: 1 tab Ondansetron HCl (Zofran Odt) 4 mg PO Q8H PRN PRN Reason: Nausea / Vomiting Stop: 11/17/16 00:59 Ondansetron HCl (Zofran) 4 mg IV Q6HR PRN PRN Reason: Nausea / Vomiting Stop: 11/19/16 11:16 Pantoprazole Sodium (Protonix) 40 mg PO DAILY [facility] Stop: 11/17/16 08:59 Last Admin: 09/21/16 09:03 Dose: 40 mg Rivaroxaban (Xarelto) 20 mg PO DAILY [facility] Stop: 11/17/16 08:59 Last Admin: 09/21/16 14:45 Dose: 20 mg Sodium Phosphate (Fleet Enema) 135 ml RC Q48HR PRN PRN Reason: Constipation Stop: 11/17/16 00:36 Spironolactone (Aldactone) 25 mg PO DAILY [facility] Stop: 11/17/16 08:59 Last Admin: 09/21/16 09:03 Dose: 25 mg Assessment/Plan - Assessment Assessment: 1. cellulitis of left leg. 2. varicose veins. 3. PAD. 4. HTN. 5. COPD. - Plan Plan: ivabx surgical consult wound care cpm
[2016-09-22] MEDS: Pantoprazole 40 mg EC Tab PO SCH (09:25)
[2016-09-22] MEDS: Multivitamin Tab PO SCH (09:25)
--- NOTE | 2016-09-22 09:52 | Consultation ---
REFERRING PHYSICIAN: Dr. Hoffmann. REASON FOR CONSULTATION: Cellulitis of lower extremities. Thank you for referring this patient to me. HISTORY OF PRESENT ILLNESS: This is a 66-year-old male who comes in because of edema and redness of both lower extremities. The patient claims that he has had pain from the left leg from the knee down for the last 10 years. He claims tenderness in the left calf mostly. Additional comorbidities include hypertension, coronary artery disease, CHF, GERD, and peptic ulcer disease. LABORATORY STUDIES: On this admission, the WBC is normal, hemoglobin 11.6. The chemistry, blood sugar is within normal limits. The liver function tests shows within normal. BNP is slightly elevated at 639. The patient has undergone arterial studies of the lower extremities and the study only showed diffuse mild to moderate bilateral atherosclerotic changes. The Doppler venous studies did not show DVT. In view of the persistent tenderness in the left calf in the absence of DVT and significant arterial disease, I will recommend MRI of this extremity to determine any occult changes, which is not evident at this point. We will follow with you. Thank you very much. JOB# [id number]
[2016-09-22] MEDS: HYDROmorphone 1 mg/mL 1mL Syr IVP PRN (10:37)
--- NOTE | 2016-09-22 13:30 | Infectious Disease Prog Note ---
Infectious Disease Subjective - Review of Systems Service Date: 09/22/16 Subjective: There is no new change. There is no fever. He feels better. Infectious Disease Objective - Results Result Diagrams: 09/18/16 06:12 09/18/16 06:12 Recent Labs: Laboratory Last Values WBC 6.7 Th/cmm (4.8-10.8) 09/18/16 06:12 RBC 3.15 Mil/cmm (3.80-5.80) L 09/18/16 06:12 Hgb 10.6 gm/dL (12.6-17.4) L 09/18/16 06:12 Hct 28.5 % (39.0-49.0) L 09/18/16 06:12 MCV 90.7 fl (80-99) 09/18/16 06:12 MCH 33.7 pg (27.0-31.0) H 09/18/16 06:12 MCHC Differential 37.2 pg (28.0-36.0) H 09/18/16 06:12 RDW 16.7 % (11.5-20.0) 09/18/16 06:12 Plt Count 166 Th/cmm (150-400) 09/18/16 06:12 MPV 8.5 fl 09/18/16 06:12 Neutrophils % 67.4 % (40.0-80.0) 09/18/16 06:12 Lymphocytes % 19.7 % (20.0-50.0) L 09/18/16 06:12 Monocytes % 11.7 % (2.0-10.0) H 09/18/16 06:12 Eosinophils % 0.8 % (0.0-5.0) 09/18/16 06:12 Basophils % 0.4 % (0.0-2.0) 09/18/16 06:12 D-Dimer 451 ng/mL (100-400) H 09/17/16 21:01 Sodium 133 mEq/L (136-145) L 09/18/16 06:12 Potassium 4.0 mEq/L (3.5-5.1) 09/18/16 06:12 Chloride 101 mEq/L (98-107) 09/18/16 06:12 Carbon Dioxide 27.8 mEq/L (21.0-31.0) 09/18/16 06:12 Anion Gap 8.2 (7.0-16.0) 09/18/16 06:12 BUN 20 mg/dL (7-25) 09/18/16 06:12 Creatinine 0.6 mg/dL (0.7-1.3) L 09/18/16 06:12 Est GFR ( Amer) > 60.0 ml/min (>90) 09/18/16 06:12 Est GFR (Non-Af Amer) > 60.0 ml/min 09/18/16 06:12 BUN/Creatinine Ratio 33.3 09/18/16 06:12 Glucose 90 mg/dL (70-105) 09/18/16 06:12 POC Glucose 149 MG/DL (70-105) H 09/17/16 22:30 Whole Bld Lactic Acid 0.85 mmol/L (0.60-2.00) 09/17/16 21:01 Calcium 9.0 mg/dL (8.6-10.3) 09/18/16 06:12 Total Bilirubin 0.6 mg/dL (0.3-1.0) 09/17/16 21:01 AST 30 U/L (13-39) 09/17/16 21:01 ALT 17 U/L (7-52) 09/17/16 21:01 Alkaline Phosphatase 128 U/L (34-104) H 09/17/16 21:01 B-Natriuretic Peptide 639.0 pg/mL (5.0-100.0) H 09/17/16 21:01 Total Protein 8.1 gm/dL (6.0-8.3) 09/17/16 21:01 Albumin 3.5 gm/dL (4.2-5.5) L 09/17/16 21:01 Globulin 4.6 gm/dL 09/17/16 21:01 Albumin/Globulin Ratio 0.8 (1.0-1.8) L 09/17/16 21:01 Vancomycin Trough 14.4 ug/mL (10-20) 09/19/16 09:30 - Physical Exam Vitals and I&O: Vital Signs Temp 98.8 F 09/22/16 10:14 Pulse 74 09/22/16 10:14 Resp 18 09/22/16 10:14 BP 113/62 09/22/16 10:14 Pulse Ox 98 09/22/16 10:14 Intake & Output 09/21/16 09/22/16 09/22/16 18:59 06:59 18:59 Intake Total 750 1170 Output Total 1000 Balance 750 170 Intake: Intake, IV Amount 250 250 Vancomycin HCl 1,250 mg 250 250 In Sodium Chloride 0.9% 250 ml @ 250 mls/hr IV Q12H [facility] Rx#:[id number] Oral 500 920 Output: Urine 1000 Stool 0 Other: # Voids 3 # Bowel Movements 0 Active Medications: Current Medications Acetaminophen (Tylenol Extra Strength) 1,000 mg PO Q4H PRN PRN Reason: Pain (Moderate) Stop: 11/17/16 00:45 Last Admin: 09/22/16 01:29 Dose: 1,000 mg Acetaminophen (Tylenol) 650 mg PO Q4HR PRN PRN Reason: Pain (Mild) Stop: 11/17/16 00:36 Last Admin: 09/18/16 20:46 Dose: 650 mg Albuterol Sulfate (Albuterol 2.5mg/3ml Neb Ud) 2.5 mg HHN BID PRN PRN Reason: Shortness of Breath or Wheeze Aspirin (Aspirin) 325 mg PO DAILY [facility] Stop: 11/17/16 08:59 Last Admin: 09/22/16 09:25 Dose: 325 mg Bisacodyl (Dulcolax 10 Mg Supp) 10 mg RC DAILY PRN PRN Reason: Constipation Stop: 11/17/16 00:36 Digoxin (Lanoxin) 0.25 mg PO DAILY [facility] Stop: 11/17/16 08:59 Last Admin: 09/22/16 09:25 Dose: 0.25 mg Diphenhydramine HCl (Benadryl) 25 mg PO HS PRN PRN Reason: Itching Stop: 11/17/16 00:36 Docusate Sodium (Colace) 100 mg PO DAILY [facility] Stop: 11/17/16 08:59 Last Admin: 09/22/16 09:24 Dose: 100 mg Furosemide (Lasix) 20 mg PO DAILY [facility] Stop: 11/17/16 08:59 Last Admin: 09/22/16 09:24 Dose: 20 mg Hydromorphone HCl (Dilaudid) 1 mg IVP Q4HR PRN PRN Reason: Pain (Moderate) Stop: 11/19/16 11:14 Last Admin: 09/22/16 10:37 Dose: 1 mg Hydromorphone HCl (Dilaudid) 2 mg IVP Q4HR PRN PRN Reason: Severe Pain Stop: 11/19/16 11:14 Vancomycin HCl 1,250 mg/ (Sodium Chloride) 250 mls @ 250 mls/hr IV Q12H [facility] Stop: 11/17/16 09:59 Last Admin: 09/22/16 10:28 Dose: 250 mls/hr Lisinopril (Zestril) 20 mg PO DAILY [facility] Stop: 11/17/16 08:59 Last Admin: 09/22/16 09:25 Dose: 20 mg Lorazepam (Ativan) 0.5 mg PO Q6HR PRN; Protocol PRN Reason: Anxiety Stop: 11/17/16 00:36 Last Admin: 09/22/16 01:29 Dose: 0.5 mg Magnesium Hydroxide (Milk Of Magnesia) 30 ml PO HS PRN PRN Reason: Constipation Stop: 11/17/16 00:36 Metoprolol Tartrate (Lopressor) 100 mg PO BID [facility] Stop: 11/17/16 08:59 Last Admin: 09/22/16 09:24 Dose: Not Given Miscellaneous (Vancomycin Iv Per Pharmacy) 1 ea [facility] PRN PRN PRN Reason: VANCOMYCIN DOSING Stop: 11/17/16 17:40 Morphine Sulfate (Morphine Ir) 15 mg PO Q12HR PRN PRN Reason: Pain (Severe) Stop: 11/17/16 00:36 Last Admin: 09/20/16 01:58 Dose: 15 mg Multivitamins/Vitamin C (Theragran) 1 tab PO DAILY [facility] Stop: 11/17/16 08:59 Last Admin: 09/22/16 09:25 Dose: 1 tab Ondansetron HCl (Zofran Odt) 4 mg PO Q8H PRN PRN Reason: Nausea / Vomiting Stop: 11/17/16 00:59 Ondansetron HCl (Zofran) 4 mg IV Q6HR PRN PRN Reason: Nausea / Vomiting Stop: 11/19/16 11:16 Pantoprazole Sodium (Protonix) 40 mg PO DAILY [facility] Stop: 11/17/16 08:59 Last Admin: 09/22/16 09:25 Dose: 40 mg Rivaroxaban (Xarelto) 20 mg PO DAILY [facility] Stop: 11/17/16 08:59 Last Admin: 09/22/16 09:23 Dose: 20 mg Sodium Phosphate (Fleet Enema) 135 ml RC Q48HR PRN PRN Reason: Constipation Stop: 11/17/16 00:36 Spironolactone (Aldactone) 25 mg PO DAILY [facility] Stop: 11/17/16 08:59 Last Admin: 09/22/16 09:25 Dose: 25 mg General: no acute distress, well developed, well nourished HEENT: atraumatic, normocephalic, PERRLA, EOMI Neck: supple Cardiovascular: S1S2, regular Lungs: clear to auscultation bilaterally, clear to percussion Abdomen: soft, no tender, no distended Extremities: other (brownish discoloration of both of the legs.), no cyanosis, no clubbing, no edema Neurological: awake, alert, oriented, CN 2-12 intact Infectious Disease Assmt/Plan - Assessment Assessment: 1. cellulitis of left leg. improved. 2. varicose veins. 3. PAD. 4. HTN. 5. COPD. - Plan Plan: Continue Vanco IV. Vjange antibiotics to doxy and augmentin po for 7 days. Ok to dc the patient.
--- NOTE | 2016-09-29 20:03 | Discharge Summary ---
HOSPITAL COURSE: The patient was admitted from a group home through the Emergency Room with a chief complaint of bilateral lower extremity pain and edema, which the patient was diagnosed with cellulitis on the lower extremities, rule out DVT. Ultrasound of the bilateral lower extremities was negative for DVT and found out that the patient has severe peripheral arterial disease. The patient was treated with series of IV antibiotics. The patient was discharged back to [facility]. FINAL DIAGNOSES: 1. Bilateral lower extremity cellulitis. 2. Peripheral arterial disease. 3. Chronic obstructive pulmonary disease. 4. Hypertension. 5. Obesity. JOB# [id number]
== END 2016-09-22 16:12 | DRG 602 ==
LOC: ER 20:20 → ICU 23:00 → MSI 23:38
PROVIDERS: ADMIT Internal Medicine; ATTEND Internal Medicine
DX: L03.116 Cellulitis of left lower limb (principal); I50.43 Acute on chronic combined systolic (congestive) and diastolic (congestive) heart failure; I48.2 Chronic atrial fibrillation; J44.9 Chronic obstructive pulmonary disease, unspecified; I73.9 Peripheral vascular disease, unspecified; I50.9 Heart failure, unspecified; I11.0 Hypertensive heart disease with heart failure; L03.115 Cellulitis of right lower limb; I25.10 Atherosclerotic heart disease of native coronary artery without angina pectoris; K27.9 Peptic ulcer, site unspecified, unspecified as acute or chronic, without hemorrhage or perforation; G89.29 Other chronic pain; K21.9 Gastro-esophageal reflux disease without esophagitis; I83.92 Asymptomatic varicose veins of left lower extremity; F41.9 Anxiety disorder, unspecified; J45.909 Unspecified asthma, uncomplicated; Z87.891 Personal history of nicotine dependence; Z87.11 Personal history of peptic ulcer disease; Z79.82 Long term (current) use of aspirin
CPT/HCPCS: 36415-UA; 71010-TC; 80048-TC; 80053-TC; 80202-TC; 82948-90; 83605; 83880-TC; 85025-TC; 85379-TC; 93005; 93925-TC; 93971-TC-LT; 96375; J1170; J1940; J1956; J3370; Z7610